=== PATIENT | male | born 1960 | race Hispanic/Latino ===

== ENCOUNTER 2017-10-21 10:49 | Emergency (ER) | payer OTHER ==
[~2017-10-21] VITALS: Ht 175.3 cm; Wt 96.6 kg
[~2017-10-21 10:49] MED LIST: HYDROCHLOROTH12.5 M3 PO; NAPROSYN500 MG PO; POTASSIUM CHLO10 ME3 PO
[2017-10-21 13:25] VITALS: BP 138/78
== END 2017-10-21 13:25 | disposition home or self-care (01) ==
LOC: EME 10:49
DX: S86.912A Strain of unspecified muscle(s) and tendon(s) at lower leg level, left leg, initial encounter (principal); I10 Essential (primary) hypertension
CPT/HCPCS: 73564; 99281; 99284